=== PATIENT | male | born 1965 | race Caucasian/White ===

== ENCOUNTER 2021-06-30 10:25 | Day surgery (SDC) | payer MEDICAID ==
[2021-06-27 11:26] LABS: COVID AG,FIA SOURCE NASOPHARYNGEAL
[~2021-06-30] VITALS: Ht 182.9 cm; Wt 90.9 kg
[~2021-06-30 10:25] MED LIST: SODIUM CHLORIDE 0.9% 1,000 ML IV ONE; SODIUM CHLORIDE 0.9% 1,000 ML ONE
[2021-06-30] MEDS ORDERED: LIDOCAINE/PF 2% 5 ML VIAL IM ONE (10:26)
[2021-06-30] MEDS ORDERED: PROPOFOL 1% 20 ML VIAL IVP ONE (10:26)
== END 2021-06-30 12:31 | disposition home or self-care (01) ==
LOC: SURGERY 10:25
PROVIDERS: ATTEND Student in an Organized Health Care Education/Training Program
DX: Z12.11 Encounter for screening for malignant neoplasm of colon (principal); K62.1 Rectal polyp; K64.8 Other hemorrhoids; F17.210 Nicotine dependence, cigarettes, uncomplicated; Z79.899 Other long term (current) drug therapy; Z72.89 Other problems related to lifestyle; Z98.890 Other specified postprocedural states
CPT/HCPCS: 45380; 87426; C1769; C9803; J2704; J3490; J7030; 88305